=== PATIENT | female | born 1995 | race Caucasian/White ===

== ENCOUNTER 2018-10-03 01:23 | Emergency (ER) | payer MEDICAID ==
[~2018-10-03] VITALS: Ht 154.9 cm; Wt 64.4 kg
[2018-10-03 01:59] VITALS: Ht 154.9 cm; Wt 64.4 kg
[2018-10-03 02:50] LABS: CALCIUM 9.1 mg/dL (8.5-10.1); CARBON DIOXIDE 33.6 mmol/L (21-32); CHLORIDE SERUM 104 mmol/L (98-107); CREATININE SERUM 0.8 mg/dL (0.6-1.0); GFR1 > 60 mL/min; GLUCOSE SERUM 92 mg/dL (74-106); POTASSIUM SERUM 4.1 mmol/L (3.5-5.1); SODIUM SERUM 143 mmol/L (136-145)
[2018-10-03 02:54] LABS: ALKALINE PHOSPHATASE 100 U/L (46-116); ALT/SGPT 24 U/L (14-59); AST/SGOT 16 U/L (15-37); BILIRUBIN TOTAL 0.17 mg/dL (0.20-1.00); LIPASE 101 IU/L (73-393); TOTAL PROTEIN, SERUM 7.7 g/dL (6.4-8.2)
[2018-10-03 03:03] LABS: BASOPHIL % 0.4 % (0-2); PLATELET COUNT 278 x10^3mcL (130-400); RED CELL DISTRIBUTION WIDTH 14.4 % (11.5-14.5)
[2018-10-03 04:36] VITALS: BP 95/52
== END 2018-10-03 04:56 | disposition home or self-care (01) ==
LOC: ED 01:23
PROVIDERS: Emergency Medicine
DX: G89.29 Other chronic pain (principal); R10.2 Pelvic and perineal pain; J45.909 Unspecified asthma, uncomplicated; Z88.0 Allergy status to penicillin; Z98.890 Other specified postprocedural states
CPT/HCPCS: J1885; Q0092

== ENCOUNTER 2018-10-16 00:16 | Emergency (ER) | payer MEDICAID ==
[~2018-10-16] VITALS: Ht 154.9 cm; Wt 59.9 kg
[2018-10-16 00:36] VITALS: Ht 154.9 cm; Wt 59.9 kg
[2018-10-16 01:43] VITALS: BP 122/53
== END 2018-10-16 01:43 | disposition home or self-care (01) ==
LOC: ED 00:16
DX: S20.219A Contusion of unspecified front wall of thorax, initial encounter (principal); J45.909 Unspecified asthma, uncomplicated; F17.210 Nicotine dependence, cigarettes, uncomplicated; Z88.0 Allergy status to penicillin; Z98.890 Other specified postprocedural states; W01.0XXA Fall on same level from slipping, tripping and stumbling without subsequent striking against object, initial encounter; Y93.89 Activity, other specified; Y92.89 Other specified places as the place of occurrence of the external cause; Y99.8 Other external cause status
CPT/HCPCS: 99406; J1885; Q0092

== ENCOUNTER 2019-04-11 08:51 | Emergency (ER) | payer MEDICAID ==
[~2019-04-11] VITALS: Ht 154.9 cm; Wt 59.4 kg
[2019-04-11 09:02] VITALS: BP 139/89; Ht 154.9 cm; Wt 59.4 kg
== END 2019-04-11 09:43 | disposition home or self-care (01) ==
LOC: ED 08:51
DX: Z13.9 Encounter for screening, unspecified (principal); J45.909 Unspecified asthma, uncomplicated; Z88.0 Allergy status to penicillin
CPT/HCPCS: Q0092

== ENCOUNTER 2019-09-24 11:13 | Emergency (ER) | payer MEDICAID ==
[~2019-09-24] VITALS: Ht 154.9 cm; Wt 67.6 kg
[2019-09-24 11:27] VITALS: Ht 154.9 cm; Wt 67.6 kg
[2019-09-24 15:01] VITALS: BP 125/63
== END 2019-09-24 15:01 | disposition home or self-care (01) ==
LOC: ED 11:13
DX: S20.211A Contusion of right front wall of thorax, initial encounter (principal); J45.909 Unspecified asthma, uncomplicated; F17.210 Nicotine dependence, cigarettes, uncomplicated; Z98.890 Other specified postprocedural states; W18.09XA Striking against other object with subsequent fall, initial encounter; Y93.89 Activity, other specified; Y92.89 Other specified places as the place of occurrence of the external cause; Y99.8 Other external cause status
CPT/HCPCS: 99406

== ENCOUNTER 2019-10-07 00:48 | Emergency (ER) | payer MEDICAID ==
[~2019-10-07] VITALS: Ht 154.9 cm; Wt 66.7 kg
[2019-10-07 00:59] VITALS: Ht 154.9 cm; Wt 66.7 kg
[2019-10-07 03:07] VITALS: BP 105/57
== END 2019-10-07 03:07 | disposition home or self-care (01) ==
LOC: ED 00:48
DX: S05.12XA Contusion of eyeball and orbital tissues, left eye, initial encounter (principal); S80.02XA Contusion of left knee, initial encounter; S40.212A Abrasion of left shoulder, initial encounter; S10.91XA Abrasion of unspecified part of neck, initial encounter; S50.312A Abrasion of left elbow, initial encounter; J45.909 Unspecified asthma, uncomplicated; Z98.890 Other specified postprocedural states; Z88.0 Allergy status to penicillin; Y04.0XXA Assault by unarmed brawl or fight, initial encounter; Y93.89 Activity, other specified; Y92.89 Other specified places as the place of occurrence of the external cause; Y99.8 Other external cause status

== ENCOUNTER 2019-11-10 19:48 | Emergency (ER) | payer MEDICAID ==
[~2019-11-10] VITALS: Ht 154.9 cm; Wt 64.4 kg
[2019-11-10 19:54] VITALS: Ht 154.9 cm; Wt 64.4 kg
[2019-11-10 20:28] LABS: CARBON DIOXIDE 27.3 mmol/L (21-32); CHLORIDE SERUM 104 mmol/L (98-107); CREATININE SERUM 0.6 mg/dL (0.6-1.0); GFR1 > 60 mL/min; GLUCOSE SERUM 90 mg/dL (74-106); POTASSIUM SERUM 3.8 mmol/L (3.5-5.1); SODIUM SERUM 139 mmol/L (136-145)
[2019-11-10 20:29] LABS: BASOPHIL % 0.5 % (0-2); PLATELET COUNT 369 x10^3mcL (130-400); RED CELL DISTRIBUTION WIDTH 14.1 % (11.5-14.5)
[2019-11-10 20:33] LABS: ALBUMIN 3.8 g/dL (3.4-5.0); ALKALINE PHOSPHATASE 78 U/L (46-116); ALT/SGPT 19 U/L (14-59); AST/SGOT 18 U/L (15-37); BILIRUBIN TOTAL 0.27 mg/dL (0.20-1.00)
[2019-11-10 23:02] VITALS: BP 100/60
== END 2019-11-10 23:02 | disposition home or self-care (01) ==
LOC: ED 19:48
PROVIDERS: Emergency Medicine
DX: N93.9 Abnormal uterine and vaginal bleeding, unspecified (principal); J45.909 Unspecified asthma, uncomplicated; Z88.0 Allergy status to penicillin; Z98.890 Other specified postprocedural states
CPT/HCPCS: J2270; J2405; J7030; Q9967

== ENCOUNTER 2019-11-23 21:35 | Emergency (ER) | payer MEDICAID ==
[~2019-11-23] VITALS: Ht 154.9 cm; Wt 63.5 kg
[2019-11-23 21:41] VITALS: BP 135/72; Ht 154.9 cm; Wt 63.5 kg
== END 2019-11-23 23:14 | disposition home or self-care (01) ==
LOC: ED 21:35
DX: S93.401A Sprain of unspecified ligament of right ankle, initial encounter (principal); J45.909 Unspecified asthma, uncomplicated; Z98.51 Tubal ligation status; X50.1XXA Overexertion from prolonged static or awkward postures, initial encounter; Y93.89 Activity, other specified; Y92.89 Other specified places as the place of occurrence of the external cause; Y99.8 Other external cause status
CPT/HCPCS: Q0092

== ENCOUNTER 2019-11-24 20:24 | Emergency (ER) | payer MEDICAID ==
[~2019-11-24] VITALS: Ht 154.9 cm; Wt 64.4 kg
[2019-11-24 20:26] VITALS: Ht 154.9 cm; Wt 64.4 kg
[2019-11-24 21:15] VITALS: BP 115/75
== END 2019-11-24 21:55 | disposition home or self-care (01) ==
LOC: ED 20:24
DX: R05 Cough (principal); J45.909 Unspecified asthma, uncomplicated; Z88.0 Allergy status to penicillin; Z98.890 Other specified postprocedural states
CPT/HCPCS: J7512

== ENCOUNTER 2020-01-20 20:26 | Emergency (ER) | payer MEDICAID ==
[~2020-01-20] VITALS: Ht 154.9 cm; Wt 66.7 kg
[2020-01-20 20:32] VITALS: Ht 154.9 cm; Wt 66.7 kg
[2020-01-20 21:13] VITALS: BP 124/82
== END 2020-01-20 21:13 | disposition home or self-care (01) ==
LOC: ED 20:26
DX: F41.9 Anxiety disorder, unspecified (principal); J45.909 Unspecified asthma, uncomplicated; Z76.0 Encounter for issue of repeat prescription; Z98.890 Other specified postprocedural states; Z88.0 Allergy status to penicillin